=== PATIENT | female | born 1985 | race Caucasian/White ===

== ENCOUNTER 2021-01-24 11:28 | Outpatient (CLI) | payer BC, SELFPAY ==
[2021-01-24 12:41] LABS: HIV 1/2 Ab P24 Ag Result Negative (Negative)
[2021-01-24 14:05] LABS: Hepatitis B Surface Antigen Negative (Negative)
[2021-01-24 14:22] LABS: Hepatitis C Virus Antibody Negative (Negative)
[2021-01-25 06:51] LABS: Rapid Plasma Reagin Non-Reactive (NonReactive)
[2021-01-27 18:05] LABS: HSV 1 IgM Screen Negative (Negative); HSV 2 IgM Screen Negative (Negative)
== END 2021-01-24 11:29 | disposition home or self-care (01) ==
PROVIDERS: PCP Family Medicine; Visit Provider Obstetrics & Gynecology
DX: Z11.3 Encounter for screening for infections with a predominantly sexual mode of transmission (principal)
CPT/HCPCS: 36415; 86592; 86695; 86696; 86703; 86803; 87340; G0432

== ENCOUNTER 2024-09-17 10:27 | Outpatient (CLI) | payer OTHER, MEDICAID, SELFPAY ==
--- NOTE | ~2024-09-17 | US_ITS ---
Pelvic ultrasound. Clinical History: Ovarian cyst Technique: Realtime transabdominal and transvaginal scanning of the pelvis was performed. Color flow Doppler and Doppler spectral analysis were performed. Findings: The uterus is anteverted. The endometrial stripe has a thickness of 4 mm. 1.3 cm cystic ma ss present towards the uterine fundus. The right ovary measures 1.4 x 1.6 x 0.9 cm. No significant right ovarian or adnexal mass is seen. The left ovary measures 3.7 x 1.7 x 3.2 cm. No significant left ovarian or adnexal mass is seen. There is no evidence of free fluid in the cul de sac. Impression: Uterine cyst or possibly necrotic fibroid, as above. No other significant findings. Reviewed, dictated and finalized at [facility]. Impression: Uterine cyst or possibly necrotic fibroid, as above. No other significant findings.
== END 2024-09-17 10:28 | disposition home or self-care (01) ==
LOC: MICIMG 10:28
PROVIDERS: PCP Obstetrics & Gynecology; Visit Provider Obstetrics & Gynecology
DX: N83.202 Unspecified ovarian cyst, left side (principal)
CPT/HCPCS: 76830; 76856